=== PATIENT | male | born 1990 | race Two or more races ===

== ENCOUNTER 2022-10-19 09:24 | Emergency (ER) | payer OTHER ==
[~2022-10-19] VITALS: Ht 172.7 cm; Wt 125.0 kg
[2022-10-19 10:01] VITALS: BP 157/96
[2022-10-19] MEDS ORDERED: cefTRIAXone SOD 1,000 MG VL IM ONE (10:30)
[2022-10-19] MEDS ORDERED: IBUP800T27 PO (10:59)
[2022-10-19] MEDS ORDERED: CEPH500C PO (10:59)
== END 2022-10-19 11:03 | disposition home or self-care (01) ==
LOC: ER 09:24
DX: S62.635A Displaced fracture of distal phalanx of left ring finger, initial encounter for closed fracture (principal); S61.315A Laceration without foreign body of left ring finger with damage to nail, initial encounter; E11.9 Type 2 diabetes mellitus without complications; E78.5 Hyperlipidemia, unspecified; I10 Essential (primary) hypertension; Z88.8 Allergy status to other drugs, medicaments and biological substances; Z88.6 Allergy status to analgesic agent; W45.8XXA Other foreign body or object entering through skin, initial encounter; Y93.89 Activity, other specified; Y92.89 Other specified places as the place of occurrence of the external cause; Y99.8 Other external cause status
CPT/HCPCS: 12002; 29130; 73140; 96372; 99283; J0696